=== PATIENT | female | born 1950 | race Caucasian/White ===

== ENCOUNTER → 2017-06-22 17:21 | Outpatient (CLI) | payer BC ==
[2014-08-09 08:33] VITALS: BMI 25.4
[~2017-06-22 17:21] MED LIST: ALDACTONE100 MG PO; BRINTELLIX; BUMEX 1 MG TAB1 MG PO; COREG CR40 MG PO; CYMBALTA60 MG PO; ESTRACE1 MG PO; HYDROCODONE-APA1 TAB PO; PRILOSEC20 MG PO; ROBAXIN-750750 MG PO; SYNTHROID50 MCG PO
== END | disposition home or self-care (01) ==
LOC: D.MAMMO 13:15
DX: Z12.31 Encounter for screening mammogram for malignant neoplasm of breast (principal)

== ENCOUNTER → 2018-07-19 16:16 | Outpatient (CLI) | payer MEDICARE ==
[2014-08-09 08:33] VITALS: BMI 25.4
== END | disposition home or self-care (01) ==
LOC: D.MAMMO 16:15
DX: Z12.31 Encounter for screening mammogram for malignant neoplasm of breast (principal)

== ENCOUNTER → 2018-07-31 15:09 | Outpatient (CLI) | payer MEDICARE, OTHER ==
[2014-08-09 08:33] VITALS: BMI 25.4
== END | disposition home or self-care (01) ==
LOC: D.CT 15:09
DX: J32.9 Chronic sinusitis, unspecified (principal)

== ENCOUNTER → 2018-08-04 16:53 | Outpatient (CLI) | payer MEDICARE, OTHER ==
[2014-08-09 08:33] VITALS: BMI 25.4
== END | disposition home or self-care (01) ==
LOC: D.CT 16:53
DX: J01.90 Acute sinusitis, unspecified (principal)

== ENCOUNTER → 2018-10-24 09:00 | Outpatient (CLI) | payer MEDICARE, OTHER ==
[2014-08-09 08:33] VITALS: BMI 25.4
[~2018-10-24 09:00] MED LIST changes: +BETAPACE 120 M120 MG PO; +BETAPACE 80 MG80 MG PO; +NEXIUM40 MG PO; +XARELTO15 MG PO
== END | disposition home or self-care (01) ==
LOC: D.HCCARDIO 09-26 09:00
DX: I20.9 Angina pectoris, unspecified (principal)

== ENCOUNTER 2018-11-02 06:54 | Outpatient (CLI) | payer MEDICARE, OTHER ==
[~2018-11-02] VITALS: Ht 152.4 cm; Wt 65.9 kg
--- NOTE | ~2018-11-02 | HEMODYNAMI ---
PATIENT:JUDY GUAMAN MEDICAL RECORD: [id number] : 52 LOCATION:[facility] ADMISSION DATE: 11/02/18 Generatedon:11/02/20188:56 Patient name: JUDY GUAMAN Patient #: [id number] SSN: : 1950 Date of study: 11/02/2018 Page: Of Hemodynamic Procedure Report Patient Data Patient Demographics Procedure consent was obtained First Name: JUDY Gender: Female Last Name: ROWENA : 1950 [facility] Initial: RACIEL Age: 67 year(s) Patient #: [id number] Race: Unknown Additional ID: [id number] Contact details Address: [address] [place] [address] [facility] State: [place] City: [place] Zip code: [address] Past Medical History Allergies Allergen Reaction Date Comments Reported Other allergy 11/02/2018 PCN, ULTRAM Admission Admission Data Admission Date: 11/02/2018 Admission Time: 6:54 Height (in.): 60 BSA: 1.63 (m2) Height (cm.): 152.4 BMI: 28.51 (kg/m2) Weight (lbs.): 146 Weight (kg.): 66.22 Lab Results Lab Result Date: 11/02/2018 Lab Result Time: 0:00 Biochemistry Name Units Result Min Max BUN mg/dl 17 --(---*)-- 7 18 Creatinine mg/dl 0.6 --(*---)-- 0.6 1.3 CBC Name Units Result Min Max Hemoglobin g/dl 11.4 *-(----)-- 13.5 17.5 Procedure Procedure Types Cath Procedure Diagnostic Procedure C [facility] w/Coronaries Procedure Description Procedure Date Procedure Date: 11/02/2018 Procedure Start Time: 8:40 Procedure End Time: 8:53 Procedure Staff Name Function Vincent Cavazos MD Performing Physician Gloria Barrera RT Monitor Debora James RT Scrub Giovanni Flood RN Nurse Yohannes Lorigan RN Nurse Procedure Data Cath Procedure Fluoroscopy Diagnostic fluoroscopy Total fluoroscopy Time: 1.3 time: 1.3 min min Diagnostic fluoroscopy Total fluoroscopy dose: 264 dose: 264 mGy mGy Contrast Material Contrast Material Type Amount (ml) Isovue 300 56 Entry Location Entry Primary Successful Side Size Upsize Upsize Entry Closure Succes sful Closure Location (Fr) 1 (Fr) 2 (Fr) Remarks Device Remarks Femoral Right 5 Fr Exoseal artery Estimated blood loss: 10 ml Diagnostic catheters Device Type Used For End Catheter Placement MULTIPACK JL 4.0 5Fr Procedure catheter MULTIPACK 3DRC 5Fr Procedure catheter MULTIPACK Pigtail 5 Fr Procedure catheter Procedure Complications No complications Procedure Medications Medication Administration Route Dosage 0.9% NaCl I.V. 100 ml/hr Oxygen etCO2 Nasal cannula 2 l/min Heparin Flush Bag added to field 2 bags (1000units/500ml NS) Lidocaine 2% added to field 20 Versed I.V. 2 mg Fentanyl I.V. 100 mcg Versed I.V. 1 mg Fentanyl I.V. 50 mcg Hemodynamics Rest BSA: 1.63 (m2) HGB: 11.4 (g/dl) O2 Consumption: Estimated: 156.9 (ml/min) O2 Con sumption indexed: Estimated:96.26 (ml/min/m) Heart Rate: 78 (bpm) Pressure Samples Time Site Value (mmHg) Purpose Heart Use Rate(bpm) 8:49 LV 124/2,12 Snapshot 87 8:50 AO 120/76(96) Pullback 77 8:50 LV 129/-3,20 Pullback 77 Gradients Valve Time Site 1 Site 2 Mean SEP/DFP Peak To Heart Use (mmHg) (sec/min) Peak Rate (mmHg) (bpm) Aortic 8:50 LV AO 13 18 9 77 129/-3,20 120/76(96) Calculations Valve P-P Mean Valve Index Valve Source Name Gradient Area Flow (cm2) Aortic 9 13 9 13 Snapshots Pre Cath Intra NCS Post Cath Vital Signs Time Heart Resp SPO2 etCO2 NIBP (mmHg) Rhythm Pain Sedation Rate (ipm) (%) (mmHg) Status Level (bpm) 8:28:06 85 19 100 0 118/84(98) A-Fib 0 (11) 10(A) , No pain 8:32:16 77 23 100 33.5 121/59(86) A-Fib 0 (11) 10(A) , No pain 8:36:22 82 16 100 38.7 112/74(83) A-Fib 0 (11) 10(A) , No pain 8:40:24 75 23 98 32 106/77(94) A-Fib 0 (11) 10(A) , No pain 8:44:30 81 12 97 37.2 105/57(78) A-Fib 0 (11) 10(A) , No pain 8:48:33 92 15 98 36.5 118/63(88) A-Fib 0 (11) 10(A) , No pain 8:52:37 81 13 100 28.3 118/79(107) A-Fib 0 (11) 10(A) , No pain Medications Time Medication Route Dose Verified Delivered Reason Notes Effe ctiveness by by 8:30:19 0.9% NaCl I.V. 100 Yohannes Yohannes Per ml/hr Rocio Chan physician RN RN 8:30:28 Oxygen etCO2 2 Yohannes Yohannes for low 02 Nasal l/min Lorigan Lorigan sats cannula RN RN 8:30:38 Heparin Flush added 2 Yohannes Yohannes used for Bag to bags Lorigan Lorigan procedure (1000units/500ml field RN RN NS) 8:30:47 Lidocaine 2% added 20ml Yohannes Yohannes for local to vial Lorigan Lorigan anesthetic field RN RN 8:39:46 Versed I.V. 2 mg Yohannes Yohannes for Lorigan Lorigan sedation RN RN 8:39:55 Fentanyl I.V. 100 Yohannes Yohannes for mcg Lorigan Lorigan sedation RN RN 8:42:47 Versed I.V. 1 mg Yohannes Yohannes for Lorigan Lorigan sedation RN RN 8:42:53 Fentanyl I.V. 50 Yohannes Yohannes for mcg Lorigan Lorigan sedation RN mechanical ordnance assembler Log Time Note 8:17:14 Yohannes Chan RN sent for patient. Start room use. 8:17:15 Signed procedure consent form obtained from patient. 8:17:16 Time tracking: Regular hours (M-F 7:00 - 5:00) 8:17:20 Plan of Care:Hemodynamics will remain stable., Cardiac rhythm will remain stable., Comfort level will be maintained., Respiratory function will remain adequate., Patient/ family verbilizes understanding of procedure., Procedure tolerated without complication., Recovers from procedure without complications.. 8:18:38 H&P Date Dictated: 11/02/2018 Within 30 days and on chart., H&P Addendum completed by physician on day of procedure. (MUST COMPLETE FOR ALL OUTPATIENTS). 8:18:53 Patient allergic to Other allergyPCN, ULTRAM 8:18:57 Patient Height : 60 inches 8:19:00 Patient Weight : 146 lbs 8:27:04 Patient received from Pre/Post Procedure Room to CCL 2 Alert and oriented. Tansferred to table in Supine position. 8:27:06 Warm blankets applied, and gerry hugger turned on for patient comfort. 8:27:07 Correct patient and procedure confirmed by team. 8:27:07 ECG and BP/O2 sat monitors applied to patient. 8:27:08 Vital chart was started 8:27:09 Full Disclosure recording started 8:28:34 Baseline sample Acquired. 8:28:38 Rhythm: atrial fibrillation 8:28:42 Pre-procedure instructions explained to patient. 8:28:42 Pre-op teaching completed and patient verbalized understanding. 8:28:44 Family in patients room. 8:28:46 Patient NPO since Midnight. 8:28:48 Is patient on blood thinner?Yes 8:28:58 XARELTO HELD FOR 3 DAYS 8:29:00 Patient diabetic? No. 8:29:01 Patient not . Patient is over age 55. 8:29:05 Snore? No 8:29:06 Sleep apnea? No 8:29:08 Previous problem with sedation/anesthesia? No ? 8:29:11 Deviated septum? No 8:29:12 Opens mouth fully? Yes 8:29:13 Sticks out tongue? Yes 8:29:14 Airway obstruction? No ? 8:29:16 Dentures? No ? 8:29:18 Pre procedure: right dorsailis pedis pulse 2+ Normal; easily identifiable; not easily obliterated 8:29:21 Patient pain scale 0/10 ?. 8:29:25 IV patent on arrival in left hand with 0.9% NaCl at [facility]. 8::44 Lab Result : BUN 17 mg/dl 8::44 Lab Result : Creatinine 0.6 mg/dl 8::44 Lab Result : Hemoglobin 11.4 g/dl 8:29:47 Lab results completed and on chart. 8:29:50 Right groin area was prepped with chlora-prep and draped in sterile fashion 8::51 Alarms reviewed by R. N. 8:29:51 Sharps counted by scrub and verified by R.N. 8:30:19 0.9% NaCl 100 ml/hr I.V. was administered by Yohannes Chan RN; Per physician; 8:30:28 Oxygen 2 l/min etCO2 Nasal cannula was administered by Yohannes Chan RN; for low 02 sats; 8:30:38 Heparin Flush Bag (1000units/500ml NS) 2 bags added to field was administered by Yohannes Chan RN; used for procedure; 8:30:47 Lidocaine 2% 20ml vial added to field was administered by Yohannes Chan RN; for local anesthetic; 8:36:37 --------ALL STOP TIME OUT------ 8:36:37 Final Timeout: patient, procedure, and site verified with staff and physician. All members of the team are in agreement. 8:36:39 Right groin site verified by team. 8:36:43 Fire Safety Assessment: A--An alcohol-based skin anteseptic being used preoperatively., C--Open oxygen or nitrous oxide is being used., D--An ESU, laser, or fiber-optic light is being used. 8:36:46 Physical assessment completed. ASA score P 2 - A patient with mild systemic disease as per Vincent Cavazos MD. 8:36:49 Sedation plan: IV Moderate Sedation Medication:Versed, Fentanyl 8:37:18 Use device set Femoral Dx 8:37:19 ACIST Syringe (04629) opened to sterile field. 8:37:20 Bag Decanter () opened to sterile field. 8:37:21 ACIST Hand Control (85213) opened to sterile field. 8:37:21 ACIST Manifold (12157) opened to sterile field. 8:37:22 Tegaderm 4 x 4 (1626W) opened to sterile field. 8:37:22 Medline Cath Pack ([id number]) opened to sterile field. 8:37:23 DIAGNOSTIC WIRE .035 260cm J wire (312560) opened to sterile field. 8:37:24 DIAGNOSTIC Multipack 5Fr catheter set ([id number]) opened to sterile field. 8:37:25 SHEATH 5FR [place] (TMD704) opened to sterile field. 8:39:46 Versed 2 mg I.V. was administered by Yohannes Chan RN; for sedation; 8:39:55 Fentanyl 100 mcg I.V. was administered by Yohannes Chan RN; for sedation; 8:40:25 Zero performed for pressure channel P1 8:40:28 Procedure started. 8:40:43 Local anesthetic to right femoral artery with Lidocaine 2% by Vincent Cavazos MD.INITIAL ACCESS ONLY 8:42:47 Versed 1 mg I.V. was administered by Yohannes Chan RN; for sedation; 8:42:53 Fentanyl 50 mcg I.V. was administered by Yohannes Chan RN; for sedation; 8:44:02 A 5 Fr sheath was inserted into the Right Femoral artery 8:44:26 A MULTIPACK JL 4.0 5Fr catheter was advanced over the wire and used for Procedure. 8:46:02 LCA angiography performed. 8:46:05 Catheter exchanged over wire. 8:46:40 A MULTIPACK 3DRC 5Fr catheter was advanced over the wire and used for Procedure. 8:47:15 RCA angiography performed. 8:47:18 Catheter exchanged over wire. 8:47:38 A MULTIPACK Pigtail 5 Fr catheter was advanced over the wire and used for Procedure. 8:49:09 LV gram done using KOHLER 8:49:11 Injector settings: Ml/sec: 10, Volume: 20, 8:49:25 LV hemodynamics recorded. 8:49:43 EF : 55 % 8:50:08 Catheter exchanged over wire. 8:50:31 EXOSEAL 5Fr (EX500) opened to sterile field. 8:51:58 Sheath removed intact; hemostasis achieved with Exoseal to the Right Femoral artery. 8:52:00 Procedure ended.(Physican Out) 8:52:24 Fluoroscopy time 01.30 minutes. 8:52:27 Fluoroscopy dose: 264 mGy 8:52:27 Flurop Dose total: 264 8:52:30 Contrast amount:Isovue 300 56ml. 8:52:43 Sharps counted by scrub and verified by R.N. 8:52:46 Post-op/insertion site Right Femoral artery dressed using a 4 x 4 and Tegaderm. 8:53:04 Post-procedure physical assessment completed. ASA score P 2 - A patient with mild systemic disease as per Vincent Cavazos MD. 8:53:09 Post procedure rhythm: atrial fibrillation 8:53:12 Estimated blood loss: 10 ml 8:53:13 Post procedure instruction explained to patient.Patient verbalizes understanding. 8:53:14 Patient needs reinforcement of post procedure teaching. 8:53:46 Procedure and supply charges have been captured, reviewed, submitted and are correct. 8:53:50 Procedure Complication : No complications 8:53:52 Vital chart was stopped 8:53:53 See physician's report for complete and final results. 8:53:54 Report given to Pre/Post Procedure Room. 8:53:57 Patient transfered to Pre/Post Procedure Room with Bed. 8:53:59 Procedure ended. 8:53:59 Full Disclosure recording stopped 8:54:08 End room use (Document Last) Device Usage Item Name Manufacture Quantity Catalog Hospital Part Current Minimal L ot# / Number Charge Number Stock Stock Serial# Code ACIST Acist 1 27542 665254 871873 535045 20 Syringe Medical (53604) Systems Inc Bag Microtek 1 2001S 797723 85603 188354 5 Decanter Medical Inc. (2001S) ACIST Hand Acist 1 63464 345266 461543 230893 5 Control Medical (66477) Systems Inc ACIST Acist 1 09245 829413 833779 932573 5 Manifold Medical (39431) Systems Inc Tegaderm 4 3M 1 1626W 470393 669083 319262 5 x 4 (1626W) Medline Medline 1 [id number] 705192 67633 532548 5 Cath Pack ([id number]) DIAGNOSTIC St Bryce 1 014099 668141 183050 794604 30 WIRE .035 260cm J wire (297543) DIAGNOSTIC Cardinal 1 LN6558 998487 45967 586540 30 Multipack Health 5Fr catheter set (VF8364) SHEATH 5FR Terumo 1 RMH619 963169 051244 930615 5 [place] (GJH978) MULTIPACK Cardinal 1 190414 5 JL 4.0 5Fr Health catheter MULTIPACK Cardinal 1 403448 5 3DRC 5Fr Health catheter MULTIPACK Cardinal 1 596529 5 Pigtail 5 Health Fr catheter EXOSEAL 5Fr Cardinal 1 EX500 712246 590397 832043 10 (EX500) Health Signature Audit Cos Cob Stage Time Signature Unsigned Intra-Procedure 11/02/2018 Gloria Barrera 8:56:03 AM RT(R) Signatures Monitor : Gloria Barrera Signature : RT Date : Time : [id number] [place] [address]
[~2018-11-02 06:54] MED LIST changes: -BETAPACE 120 M120 MG PO; -BETAPACE 80 MG80 MG PO; -NEXIUM40 MG PO; -XARELTO15 MG PO
[2018-11-02] MEDS ORDERED: XARELTO15 MG PO (07:11)
[2018-11-02] MEDS ORDERED: BETAPACE 80 MG80 MG PO (07:12)
[2018-11-02] MEDS ORDERED: BETAPACE 120 M120 MG PO (07:12)
[2018-11-02] MEDS ORDERED: NEXIUM40 MG PO (07:14)
[2018-11-02 07:23] VITALS: BP 151/66; Ht 152.4 cm; Wt 65.9 kg
[2018-11-02 07:39] LABS: BASOPHILS 0.5 % (0-2); EOSINOPHILS 2.6 % (0-7); HEMATOCRIT 34.7 % (36.0-48.0); HEMOGLOBIN 11.4 g/dL (12-16); IMMATURE GRANULOCYTES 0.2 % (0-5); LYMPHOCYTES 27.1 % (15-50); MCH 34.2 pg (26.0-34.0); MCHC 32.9 g/dL (31.0-37.0); MCV 104.2 fL (80.0-100.0); MEAN PLATELET VOLUME 9.9 fL (7.4-10.4); MONOCYTES 14.1 % (2-11); NEUTROPHILS 55.5 % (40-80); PLATELET COUNT 167 10x3/uL (130-400); RBC 3.33 10x6/uL (4.00-5.40); RDW 12.6 % (11.5-14.5); WBC 5.8 10x3/uL (4.8-10.8)
[2018-11-02 07:45] LABS: CALC OSMOLALITY 282 mosm/kg (275-300); CALCIUM 8.6 mg/dL (8.5-10.1); CARBON DIOXIDE 24.9 mmol/L (21.0-32.0); CHLORIDE - SERUM 105 mmol/L (98-107); CREATININE - SERUM 0.6 mg/dL (0.6-1.3); GLUCOSE 106 mg/dL (74-106); POTASSIUM - SERUM 4.1 mmol/L (3.5-5.1); SODIUM 141 mmol/L (136-145); UREA NITROGEN 17 mg/dL (7-18); eGFR NON AFRICAN AMERICAN > 90 mL/min (90-120)
--- NOTE | 2018-11-02 09:16 | NUR ---
PT IS ALERT AND DENIES ANY C/O. PT ABDIEL PO FLUIDS WITH NO C/O NAUSEA. DRESSING TO RIGHT GROIN IS CDI, AREA IS SOFT AND NONTENDER. PEDAL PULSES PALPABLE. HOB IS FLAT, FRIENDS AT BEDSIDE. A-FIB, RATE IS 76, DENIES ANY C/O CHEST PAIN.
--- NOTE | 2018-11-02 10:12 | NUR ---
DRESSING CDI TO RIGHT GROIN, AREA IS SOFT AND NONTENDER. PEDAL PULSES PALPABLE. PT SLEEPING INTERMITTENTLY, AWAKENS EASILY TO VERBAL STIMULI. DENIES ANY C/O. AFIB WITH RATE OF 82, DENIES ANY C/O CHEST DISCOMFORT CALL LIGHT IN REACH, SISTER AT BEDSIDE, HOB ELEVATED 30 DEGREES.
--- NOTE | 2018-11-02 10:31 | NUR ---
DRESSING REMAINS CDI TO RIGHT GROIN, AREA IS SOFT AND NONTENDER. PEDAL PULSES PALPABLE. PT IS ALERT AND DENIES ANY C/O. HOB FULLY ELEVATED AND FOOD/ FLUIDS SERVED. SISTER AT BEDSIDE, CALL LIGHT IN REACH.
--- NOTE | 2018-11-02 11:20 | NUR ---
DRESSING TO RIGHT GROIN REMAINS CDI, AREA IS SOFT AND NONTENDER. PEDAL PULSES PALPABLE. PT IS ALERT AND DENIES ANY C/O. HAS ABDIEL BREAKFAST AND PO FLUIDS WITH NO C/O NAUSEA. IV DC'D WITH CATH INTACT AND PT IS DRESSING FOR DC TO HOME WITH ASSIST.
--- NOTE | 2018-11-02 11:39 | NUR ---
PT HAS DRESSED FOR DC TO HOME. HAS AMBULTED TO THE BATHROOM AND VOIDED QS. DENIES ANY C/O. DC INSTRUCTIONS REVIEWED WITH PT AND FAMILY WHO VERBALIZE UNDERSTANDING. PT ESCORTED TO PRIVATE AUTO VIA WC WITH DAUGHTER DRIVING HER HOME.
== END 2018-11-02 11:35 | disposition home or self-care (01) ==
LOC: D.CATH 06:54
PROVIDERS: Internal Medicine Cardiovascular Disease
DX: R07.9 Chest pain, unspecified (principal); R94.39 Abnormal result of other cardiovascular function study; I48.91 Unspecified atrial fibrillation; Z95.0 Presence of cardiac pacemaker; K21.9 Gastro-esophageal reflux disease without esophagitis; F32.9 Major depressive disorder, single episode, unspecified; Z82.49 Family history of ischemic heart disease and other diseases of the circulatory system

== ENCOUNTER → 2019-04-19 11:36 | Outpatient (CLI) | payer MEDICARE, OTHER ==
[2018-11-02 07:23] VITALS: BMI 28.3
[~2019-04-19 11:36] MED LIST changes: +BETAPACE 120 M120 MG PO; +BETAPACE 80 MG80 MG PO; +NEXIUM40 MG PO; +XARELTO15 MG PO
== END | disposition home or self-care (01) ==
LOC: D.HCCARDIO 11:30
PROVIDERS: ATTEND Internal Medicine Cardiovascular Disease
DX: I34.0 Nonrheumatic mitral (valve) insufficiency (principal)

== ENCOUNTER → 2019-06-13 12:58 | Outpatient (CLI) | payer MEDICARE, OTHER ==
[2018-11-02 07:23] VITALS: BMI 28.3
== END | disposition home or self-care (01) ==
LOC: D.CT 12:58
PROVIDERS: ATTEND Orthopaedic Surgery
DX: M25.561 Pain in right knee (principal)

== ENCOUNTER 2019-07-06 06:20 | Day surgery (SDC) | payer MEDICARE, OTHER ==
[~2019-07-06] VITALS: Ht 152.4 cm; Wt 68.0 kg
[~2019-07-06 06:20] MED LIST changes: +BUMETANIDE0.5 MG PO; -BUMEX 1 MG TAB1 MG PO; -ROBAXIN-750750 MG PO; +ROBAXIN500 MG PO
[2019-07-06 07:56] VITALS: BP 148/84; Ht 152.4 cm; Wt 68.0 kg
[2019-07-06 07:56] LABS: HEMATOCRIT 41.6 % (36.0-48.0); HEMOGLOBIN 13.4 g/dL (12-16); MCH 33.9 pg (26.0-34.0); MCHC 32.2 g/dL (31.0-37.0); MCV 105.3 fL (80.0-100.0); MEAN PLATELET VOLUME 10.7 fL (7.4-10.4); RBC 3.95 10x6/uL (4.00-5.40); RDW 13.2 % (11.5-14.5)
[2019-07-06] MEDS ORDERED: PERCOCET 10-321 EAC1 PO (10:26)
[2019-07-06] MEDS ORDERED: VISTARIL50 MG PO (10:26)
--- NOTE | 2019-07-06 11:45 | OP ---
PATIENT NAME: JUDY FERMIN MEDICAL RECORD: [id number] :52 LOCATION:[facility] ADMISSION DATE: SURGEON: BERTRAND HERNANDEZ DO DATE OF OPERATION: 07/06/2019 PROCEDURE PERFORMED: Evacuation of hematoma and excision of hematoma on the right knee. PREOPERATIVE DIAGNOSIS: Hematoma, right knee. POSTOPERATIVE DIAGNOSIS: Hematoma, right knee. INDICATIONS: Ms. Fermin is a 68-year-old female, who fell on her right knee back in January. She is on Xarelto. She had a large hematoma just under the skin, not in the joint and a CT was done that showed that. It has walled off very well. I informed her of the risks including recurrence of the hematoma, bleeding due to her being on Xarelto even though she stopped it, infection, damage to nerves and vessels, need for further surgery, continued pain, loss of range of motion of the knee, drainage, and she signed the consent. SURGEON: Bertrand Hernandez DO DESCRIPTION OF PROCEDURE: The patient was taken to the operative suite, laid in supine position, given general anesthetic and LMA was placed. She was given 900 mg of clindamycin preoperatively. The right lower extremity was prepped and draped in sterile fashion. A time-out was performed and everyone was in agreement with the correct side, site, patient and procedure. Incision then began over the anterior knee. Careful dissection made down to the hematoma. The hematoma was evacuated as well as a tissue surrounding it and sent to the lab. It was very well encapsulated and this was all removed. A tourniquet had been inflated and the right lower extremity was exsanguinated with an Esmarch and was up for approximately 20 minutes. Once the tourniquet was let down, the patient was oozing a lot. I coagulated where I could and then put Surgicel powder in the wound. The wound had been irrigated prior to this. I then closed the skin with 2-0 Vicryl in an inverted interrupted fashion and ZipLine placed on the knee and Prevena on the knee. She was wrapped with Webril and 6-inch Best wrap and taken to recovery in stable condition. Blood loss was approximately 200 mL. Complications were none. TRANSINT:[id number] Voice Confirmation ID: [id number] DOCUMENT ID: [id number] BERTRAND HERNANDEZ DO at 1145 CC: [id number] DICTATION DATE: 07/06/19 1029 LABORER LANDSCAPE: 07/06/19 1054 [facility] [address] [place] [address]
--- NOTE | 2019-07-06 13:15 | NUR ---
PATIENT AMBULATES TO BATHROOM AND VOIDS LARGE AMOUNT IN TOILET, DRESSING IN PERSONAL CLOTHING, AMBULATING WITH WALKER, WITHOUT UNSTEADINESS OR DIZZINESS, PATIENT STATES SHE HAS A WALKER AT HOME SHE CAN USE
--- NOTE | 2019-07-06 14:23 | NUR ---
PATIENT HAS RECEIVED EDUCATION REGARDING WOUND VAC BY LIANG CARRIZALES RN, WOUND CARE NURSE. DAUGHTER HAS RETURNED TO PROVIDE TRANSPORTATION HOME FOR PATIENT, PATIENT DISCHARGED HOME VIA WHEELCHAIR TO PRIVATE VEHICLE WITH DAUGHTER
--- NOTE | 2019-07-06 16:16 | NUR ---
TEACHING PROVIDED FOR PREVENA INCISION MGMT SYSTEM. REVIEWED TROUBLESHOOTING AND ALARMS, i.e. CHECKING FOR LEAKS, CHECKING CANISTER PLACEMENT AND AMOUNT OF DRAINAGE IN CANISTER. INSTRUCTION ON PREVENA MACHINE: BATTERY HAS A 7 DAY CHARGE, AFTER 7 DAYS DRESSING CAN BE REMOVED AND ENTIRE SYSTEM DISCARDED. MEPILEX AG DRESSING PROVIDED FOR AFTER REMOVAL OF PREVENA DRESSING. PHONE #S PROVIDED FOR ASSISTANCE WITH PROBLEMS.
== END 2019-07-06 14:23 | disposition home or self-care (01) ==
LOC: D.OPS 06:20 → D.PAN 07:00 → D.OPS 07:30
PROVIDERS: Anesthesiology; ATTEND Orthopaedic Surgery
DX: S80.01XA Contusion of right knee, initial encounter (principal); W19.XXXA Unspecified fall, initial encounter; M25.561 Pain in right knee

== ENCOUNTER → 2021-01-14 12:45 | Outpatient (CLI) | payer MEDICARE, OTHER ==
[2019-07-06 07:56] VITALS: BMI 29.3
[~2021-01-14 12:45] MED LIST changes: +PERCOCET 10-321 EAC1 PO; +VISTARIL50 MG PO
[2021-01-14 13:30] LABS: BASOPHILS 0.7 % (0-2); HEMATOCRIT 36.9 % (36.0-48.0); HEMOGLOBIN 11.9 g/dL (12-16); IMMATURE GRANULOCYTES 0.3 % (0-5); LYMPHOCYTE ABS# 1.33 10x3/uL (1.18-3.74); LYMPHOCYTES 19.2 % (15-50); MCH 31.9 pg (26.0-34.0); MCHC 32.2 g/dL (31.0-37.0); MCV 98.9 fL (80.0-100.0); MEAN PLATELET VOLUME 10.5 fL (7.4-10.4); MONOCYTES 8.8 % (2-11); NEUTROPHIL ABS# 4.84 10x3/uL (1.56-6.13); PLATELET COUNT 238 10x3/uL (130-400); RBC 3.73 10x6/uL (4.00-5.40); RDW 15.2 % (11.5-14.5); WBC 6.9 10x3/uL (4.8-10.8)
[2021-01-14 13:36] LABS: ANION GAP 15.3 mmol/L (8-16); CALCIUM 9.1 mg/dL (8.5-10.1); CARBON DIOXIDE 24.5 mmol/L (21.0-32.0); CREATININE - SERUM 0.9 mg/dL (0.6-1.3); POTASSIUM - SERUM 3.8 mmol/L (3.5-5.1)
[2021-01-14 13:44] LABS: INR 2.19 (0.85-1.17); PROTIME 22.6 SECONDS (11.6-15.0)
== END | disposition home or self-care (01) ==
LOC: D.LAB 12:45
PROVIDERS: ATTEND Internal Medicine Clinical Cardiac Electrophysiology
DX: I48.91 Unspecified atrial fibrillation (principal)